=== PATIENT | female | born 1935 | race Caucasian/White ===

== ENCOUNTER → 2018-08-24 | Outpatient (CLI) | payer MEDICARE, BC ==
[~2018-08-24] MED LIST: REGADENOSON 0.4 MG/5 ML SYRINGE IV ONE
--- NOTE | 2018-08-24 12:58 | NM ---
EXAMINATION TYPE: NM stress lexiscan cardiolite DATE OF EXAM: 08/24/2018 COMPARISON: NONE HISTORY: 82-year-old female with CAD, hypertension, hypercholesterolemia, family history, 25-50+ pack year history of smoking, prior OH in 2001, and COPD. TECHNIQUE: After the intravenous administration of 10.17 mCi Tc 99m Sestamibi - Cardiolite resting S PECT images acquired 60 minutes post injection. The patient received 0.4mg Lexiscan, 24.3 mCi Tc 99m Sestamibi - Stress images obtained [address] injection FINDINGS: Review of stress and rest SPECT images demonstrates a large area of fixed perfusion abnormality along the anteroseptal wall extending from the apex to the base. No discrete reversibility is identified. Gated analysis shows limited thickening and augmentation of this portion of the wall. Estimated left ventricular ejection fraction of 68 %. TID is calculated at 0.90, within normal limits. 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 No convincing findings of ind ucible ischemia at this time.
--- NOTE | 2018-08-24 13:32 | EST ---
EXERCISE STRESS DATE OF SERVICE: 08/24/2018 AGE: 82 SEX: Female HT: 5'2" WT: 131 PROTOCOL: Lexiscan Cardiolite STAGE: DURATION OF EXERCISE: HEART RATE REST: 58 BLOOD PRESSURE REST: 168/70 MAXIMUM HEART RATE ACHIEVED: 65 MAXIMUM BLOOD PRESSURE: 188/81 85% MPHR: 100% MPHR: METS: INDICATIONS: Coronary artery disease. CLINICAL INFORMATION: Lexiscan Cardiolite study was performed. Peak heart rate of 65 was achieved. Maximum blood pressure of 188/81 mmHg was noted. Resting EKG shows normal sinus rhythm with diffuse T-wave inversions noted in the inferior lateral leads and no significant change in the ST-segment from the baseline was noted. FINAL IMPRESSION: The results of the nuclear study will follow. DUSTYL / IJN: [id number] /
== END | disposition home or self-care (01) ==
LOC: RADNMMAIN 08:16
PROVIDERS: ATTEND Family Medicine
DX: I25.10 Atherosclerotic heart disease of native coronary artery without angina pectoris (principal)
CPT/HCPCS: 93017; 78452; A9500; J2785

== ENCOUNTER → 2018-09-03 | Outpatient (CLI) | payer MEDICARE, BC ==
--- NOTE | 2018-09-03 18:12 | ECHOF ---
Referral Reason:I25.10 Coronary Artery Disease MEASUREMENTS -------- HEIGHT: 160.0 cm WEIGHT: 61.7 kg BP: RVIDd: 3.0 cm (< 3.3) IVSd: 1.0 cm (0.6 - 1.1) LVIDd: 4.4 cm (3.9 - 5.3) LVPWd: 1.0 cm (0.6 - 1.1) IVSs: 1.4 cm LVIDs: 2.7 cm LVPWs: 1.4 cm LAESV Index (A-L): 24.25 ml/m Ao Diam: 3.3 cm (2.0 - 3.7) AV Cusp: 1.1 cm (1.5 - 2.6) LA Diam: 3.5 cm (2.7 - 3.8) MV EXCURSION: 16.920 mm (> 18.000) MV EF SLOPE: 87 mm/s (70 - 150) EPSS: 0.6 cm MV E Jhonatan: 0.71 m/s MV DecT: 275 ms MV A Jhonatan: 0.82 m/s MV E/A Ratio: 0.86 RAP: 5.00 mmHg RVSP: 21.62 mmHg FINDINGS -------- Sinus rhythm. This was a technically adequate study. The left ventricular size is normal. Left ventricular wall thickness is normal. Overall left vent ricular systolic function is normal with, an EF between 55 - 60 %. The right ventricle is normal in size and function. Normal LA size by volume 22+/-6 ml/m2. The right atrium is normal in size. There is mild aortic valve sclerosis. Trace to mild aortic regurgitation. There is no evidence of aortic stenosis. Mild mitral annular calcification present. There is trace to mild mitral regurgitation. Trace tricuspid regurgitation present. Right ventricular systolic pressure is normal at < 35 mmHg. There is no evidence of pulmonary hypertension. The pulmonic valve was not well visualized. The aortic root size is normal. Normal inferior vena cava with normal inspiratory collapse consistent with estimated right atrial pre ssure of 5 mmHg. There is no pericardial effusion. CONCLUSIONS -------- 1. Sinus rhythm. 2. This was a technically adequate study. 3. The left ventricular size is normal. 4. Left ventricular wall thickness is normal. 5. Overall left ventricular systolic function is normal with, an EF between 55 - 60 %. 6. Normal LA size by volume 22+/-6 ml/m2. 7. There is mild aortic valve sclerosis. 8. Trace to mild aortic regurgitation. 9. Mild mitral annular calcification present. 10. There is trace to mild mitral regurgitation. 11. Trace tricuspid regurgitation present. 12. Right ventricular systolic pressure is normal at < 35 mmHg. 13. There is no evidence of pulmonary hypertension. 14. The pulmonic valve was not well visualized. 15. The aortic root size is normal. 16. There is no pericardial effusion. COMMERCIAL CREDIT ANALYST: Cesar Sandoval RDCS
== END | disposition home or self-care (01) ==
LOC: RADECHMAIN 14:28
PROVIDERS: ATTEND Family Medicine
DX: I08.0 Rheumatic disorders of both mitral and aortic valves (principal)
CPT/HCPCS: 93306